=== PATIENT | male | born 1965 | race Caucasian/White ===

== ENCOUNTER 2018-06-29 00:08 | Outpatient (CLI) | payer BC ==
[2018-06-29 11:06] LABS: #Basophils 0.1 thou/uL (0.0-0.2); #Eosinphils 0.1 thou/uL (0.0-0.7); #Lymphocytes 1.4 thou/uL (1.20-3.40); #Monocytes 0.6 thou/uL (0.11-0.59); #Neutrophils 2.5 thou/uL (1.40-6.50); %Basophils 1.3 % (0.0-1.0); %Eosinophils 1.7 % (0.0-10.0); %Monocytes 12.2 % (0.0-10.0); %Neutrophils 54.8 % (42.0-75.0); Hemoglobin 15.2 g/dL (14.0-18.0); Mean Corpuscular HGB CONC 33.5 g/dL (32.0-36.0); Mean Corpuscular Hemoglobin 29.9 pg (27.0-31.0); Mean Corpuscular Volume 89.2 fL (78.0-98.0); Mean Platelet Volume 9.8 fL (7.4-10.4); Platelet Count 163 thou/uL (130-400); RBC Distribution Width 11.9 % (11.5-14.5); White Blood Cell (WBC) Count 4.6 thou/uL (4.8-10.8)
[2018-06-29 11:31] LABS: ALT (SGPT) 20 U/L (8-55); AST (SGOT) 17 U/L (5-34); Albumin 4.6 g/dL (3.5-5.0); Alkaline Phosphatase 70 U/L (40-150); Anion Gap 12 mmol/L (10-20); BUN (Urea Nitrogen) 11 mg/dL (8.9-20.6); Bilirubin, Total 0.8 mg/dL (0.2-1.2); Calc. Creatinine Clearance 0 mL/min (70-130); Calcium 9.3 mg/dL (7.8-10.44); Carbon Dioxide 25 mmol/L (22-29); Chloride 105 mmol/L (98-107); Estimated GFR-MDRD 86; Globulin 2.7 g/dL (2.4-3.5); Glucose 96 mg/dL (70-105); Protein, Total 7.3 g/dL (6.0-8.3); Sodium 138 mmol/L (136-145)
--- NOTE | 2018-06-30 22:54 | EKG ---
Test Reason : Blood Pressure : / mmHG Vent. Rate : 051 BPM Atrial Rate : 051 BPM P-R Int : 192 ms QRS Dur : 092 ms QT Int : 418 ms P-R-T Axes : 060 050 034 degrees QTc Int : 385 ms Sinus bradycardia Cannot rule out Anterior infarct , age undetermined /DOUBTFUL Abnormal ECG No previous ECGs available Confirmed by RENU CAMPBELL ([id number]) on 06/30/2018 10:54:44 PM Referred By: LETI Confirmed By:RENU CAMPBELL
== END 2018-06-29 00:09 | disposition home or self-care (01) ==
LOC: LABBT 00:08
PROVIDERS: ATTEND Surgery
DX: Z01.818 Encounter for other preprocedural examination (principal); K40.90 Unilateral inguinal hernia, without obstruction or gangrene, not specified as recurrent
CPT/HCPCS: 80053; 85025; 93005; 93010

== ENCOUNTER → 2018-07-01 | Day surgery (SDC) | payer BC ==
[2018-06-29 09:38] VITALS: BMI 27.6
[~2018-07-01] MED LIST: Bupivacaine/Epinephrine 0.25% 30 ML VIAL ONE; Dexamethasone 20 MG/5 ML VIAL ONE; Fentanyl 100 MCG/2 ML VIAL ONE; Glycopyrrolate 0.2 MG/ML 5 ML SYRINGE ONE; HYDROcodone/Acetaminophen 5/325 mg Tablet ONE; Ketorolac Tromethamine 30 MG/ML VIAL ONE; Lidocaine 1% PF 5 ML VIAL ONE; Lidocaine 2% Jelly 5 ML TUBE ONE; Midazolam HCl 2 mg/2 ml Vial ONE; Morphine 2 MG/ML SYRINGE ONE; Ondansetron PF 4 MG/2 ML Vial ONE; PROPOFOL 200 MG/20 ML VIAL ONE; Rocuronium Bromide 10 MG/ML (10ML VIAL) ONE
--- NOTE | 2018-07-01 11:52 | OP ---
DATE OF PROCEDURE: 07/01/2018 PREOPERATIVE DIAGNOSIS: Left inguinal hernia. PROCEDURE PERFORMED: Laparoscopic robotic-assisted left inguinal hernia repair with mesh. INDICATIONS: This is a 52-year-old male with a painful left groin bulge. FINDINGS: Left direct inguinal hernia. DESCRIPTION OF PROCEDURE: After informed consent was obtained, the patient was taken to the operating room and given general endotracheal anesthesia. He was placed in the supine position. His abdomen was prepped and draped in usual fashion. Local anesthesia was infiltrated subcutaneously and deep, and a supraumbilical incision was performed. Subcu was divided sharply. The fascia was grasped and incision was made in the fascia. Digital palpation revealed no local adhesions. A 12-mm trocar was inserted. Pneumoperitoneum was created to a pressure of 15 mmHg under direct vision utilizing a 30-degree laparoscope. Two 8 mm ports were placed just lateral to the rectus muscle at the level of the first incision. Then, the patient was placed in Trendelenburg position and the robot was docked. Now went to the console. The peritoneum was opened from median umbilical ligament laterally with electrocautery. Then, the subperitoneal pocket was created using blunt and sharp dissection. The hernia sac was completely dissected out. Hemostasis assured. A large contour mesh was inserted. It was sutured to the pubic tubercle with interrupted 2-0 silk suture tied intracorporeally, then to the anterior abdominal wall with a 2-0 silk suture tied intracorporeally just medial to the epigastric vessels. Again, hemostasis assured and the peritoneum was closed over the mesh with a running 3-0 V-Loc PDS. Hemostasis assured. [place] were removed. Trocars were removed. The fascia was closed with interrupted 0 Vicryl suture. The skin was closed with interrupted 4-0 Rapide. Dermabond was applied. The patient tolerated the procedure well, transferred to Recovery in good condition. Sponge and needle count verified, correct x2. Job ID: [id number]
== END ==
LOC: SDC 05:47
PROVIDERS: ATTEND Surgery
PROC: 0YU64JZ Supplement Left Inguinal Region with Synthetic Substitute, Percutaneous Endoscopic Approach (ICD-10-PCS; principal; 2018-07-01)
DX: K40.90 Unilateral inguinal hernia, without obstruction or gangrene, not specified as recurrent (principal); K21.9 Gastro-esophageal reflux disease without esophagitis; Z79.899 Other long term (current) drug therapy; Z79.52 Long term (current) use of systemic steroids
CPT/HCPCS: C1781; J0131; J0690; J1100; J1885; J2001; J2250; J2270; J2405; J2704; J3010

== ENCOUNTER 2018-07-03 07:05 | Observation (INO) | payer BC ==
[2018-07-03] MEDS ORDERED: Famotidine/PF 20 mg/2ml Vial ONE (07:15)
[2018-07-03] MEDS ORDERED: Nitroglycerin 0.4 MG TAB (25 Tab Bottle) ONE (07:15)
[2018-07-03] MEDS ORDERED: Aspirin Chewable 81 MG TAB ONE (07:16)
[2018-07-03] MEDS ORDERED: Milk Of Magnesia 30 ML UDCUP ONE (07:23)
[2018-07-03] MEDS ORDERED: Lidocaine Viscous Sol 2% 15 ml UD Cup ONE (07:23)
[2018-07-03 07:36] LABS: ALT (SGPT) 14 U/L (8-55); AST (SGOT) 13 U/L (5-34); Albumin 4.3 g/dL (3.5-5.0); Alkaline Phosphatase 66 U/L (40-150); Anion Gap 15 mmol/L (10-20); BUN (Urea Nitrogen) 16 mg/dL (8.9-20.6); Bilirubin, Total 0.5 mg/dL (0.2-1.2); Calc. Creatinine Clearance 0 mL/min (70-130); Calcium 9.5 mg/dL (7.8-10.44); Carbon Dioxide 21 mmol/L (22-29); Chloride 107 mmol/L (98-107); Estimated GFR-MDRD 90; Globulin 2.9 g/dL (2.4-3.5); Glucose 98 mg/dL (70-105); Potassium 4.4 mmol/L (3.5-5.1); Protein, Total 7.2 g/dL (6.0-8.3); Sodium 139 mmol/L (136-145)
[2018-07-03 07:45] LABS: Band 2 % (5-11); Eosinophils 2 % (0-10); Hemoglobin 14.5 g/dL (14.0-18.0); Lymphocytes 35 % (21-51); MDiff Complete? YES; Mean Corpuscular HGB CONC 33.3 g/dL (32.0-36.0); Mean Corpuscular Hemoglobin 28.9 pg (27.0-31.0); Mean Corpuscular Volume 86.9 fL (78.0-98.0); Mean Platelet Volume 10.1 fL (7.4-10.4); Monocytes 5 % (0-10); Neutrophil 53 % (42-75); Platelet Count 140 thou/uL (130-400); RBC Distribution Width 11.9 % (11.5-14.5); Reactive Lymphocytes 3 % (0-10); Red Blood Cell (RBC) Count 5.01 mill/uL (4.70-6.10); White Blood Cell (WBC) Count 6.5 thou/uL (4.8-10.8)
--- NOTE | 2018-07-03 08:07 | RAD ---
Chest one view HISTORY: Chest pain. Recent abdominal surgery. FINDINGS: Cardiac silhouette is magnified and upper limits of normal in size. Pulmonary vasculature a lso upper limits of normal. Mediastinum is midline. No lobar consolidation or evidence of pneumothorax. Small amount of gas lies under the right and left hemidiaphragms. shelter monitor leads overlie the c hest. IMPRESSION: Borderline cardiomegaly. No active cardiopulmonary abnormalities are apparent. Small amount of residual pneumoperitoneum from recent surgery.
[2018-07-03] MEDS ORDERED: Nitroglycerin 2% Ointment 1 INCH/1 GM Packet ONE (08:17)
[2018-07-03] MEDS ORDERED: Ondansetron PF 4 MG/2 ML Vial ONE (08:46)
--- NOTE | 2018-07-03 10:34 | CT ---
CT PULMONARY ANGIOGRAM WITH IV CONTRAST AND 3D MIP RECONSTRUCTIONS: DATE: 07/03/2018. PROVIDED CLINICAL HISTORY: Chest pain and elevated D-dimer and history of recent inguinal hernia repair. FINDINGS: The heart, pericardium, and great vessels demonstrate an unremarkable CT appearance. There is no pako dence for central or segmental pulmonary embolus. The lungs are free of significant opacity. The airway appears patent and of normal caliber. No pleu ral fluid or pneumothorax apparent. There is conspicuous pneumoperitoneum. This could be on the basis of the provided history of recent surgery. Small low-density foci are seen within the liver and likely reflect cysts but are too small to definitely characterize. The osseous structures demonstrate no concerning osteoblastic or osteol ytic lesions. IMPRESSION: 1. No evidence for central or segmental pulmonary embolus. 2. Pneumoperitoneum, moderate in degree. This could be on the basis of recent surgery. Consider apple rgical consultation if indicated. POS: [facility]
[2018-07-03] MEDS ORDERED: HYDROcodone/Acetaminophen 5/325 mg Tablet ONE (11:00)
[2018-07-03] MEDS ORDERED: Iopamidol 370 76% 100 ML VIAL ONE (11:16)
[2018-07-03 16:23] LABS: Troponin I Less than 0.010 ng/mL (< 0.028)
[2018-07-03 16:39] VITALS: BMI 31.1
[2018-07-03] MEDS ORDERED: Ondansetron PF 4 MG/2 ML Vial IVP PRN (17:19)
[2018-07-03] MEDS ORDERED: Acetaminophen 325 MG TAB PO PRN (17:19)
[2018-07-03] MEDS ORDERED: HYDROcodone/Acetaminophen 5/325 mg Tablet PO PRN ×2 (17:19)
[2018-07-03] MEDS ORDERED: Ondansetron ODT 4 MG TAB SL PRN (17:19)
[2018-07-03] MEDS ORDERED: Morphine 2 MG/ML SYRINGE SLOW IVP PRN (17:28)
[2018-07-03] MEDS ORDERED: Nitroglycerin 2% Ointment 1 INCH/1 GM Packet TOP SCH (18:00)
[2018-07-03] MEDS: Morphine 4 MG/ML VIAL SLOW IVP PRN (18:07)
[2018-07-03 19:34] LABS: Troponin I Less than 0.010 ng/mL (< 0.028)
--- NOTE | 2018-07-03 20:46 | CT ---
CT ABDOMEN AND PELVIS WITHOUT CONTRAST: 07/03/18 HISTORY: Abdominal pain, recent inguinal hernia surgery on 07/01/18. Chest pain. FINDINGS: Comparison made with CT stone protocol of 04/13/15 and CTA chest of 07/03/18. Absence of oral and IV contrast reduces the sensitivity of the exam for evaluation of solid organs an d bowel. There is mild atelectatic changes at the right lung base. There is free air in the abdomen which was also seen on the earlier CTA. This is likely due to recent surgery. Surgical consultation should be obtained. Low dense lesions in the liver consistent with cysts are again seen as on 04/13/15. There is vicarious excretion of contrast into the gallbladder. Contrast excretion is also seen in the ureters and urinar y bladder. There is free air in the urinary bladder likely from recent instrumentation. No hydrourete ronephrosis is noted on either side. There is a small amount of free fluid in the pelvis. Attenuation value of the fluid is about 30 Hounsfield units. Possibility of hemorrhage should be considered. A normal appearing appendix is seen. There are postop changes in the left inguinal region. Free air i s also seen in the pelvis. There are degenerative changes in the spine. IMPRESSION: 1. Free air in the abdomen and pelvis may be due to recent surgery. Clinical correlation and apple rgical consultation is recommended. 2. Small amount of free fluid in the pelvis. Possibility of hemorrhage cannot be excluded. 3. Free air in the urinary bladder may be due to recent instrumentation. POS: [facility]
--- NOTE | 2018-07-04 01:03 | HP ---
PRIMARY CARE PHYSICIAN: Dr. Lamar. CHIEF COMPLAINT: Abdominal pain/chest pain. HISTORY OF PRESENT ILLNESS: This is a 52-year-old male who reported to the emergency room today in [facility]. He had of kind of flank pain, radiated to his chest, right shoulder off and on since yesterday. He thought it was reflux and it occurred today at 6:30 this morning and worst he has ever had and in multiple places. Pertinent recent medical history includes a hernia repair two days ago laparoscopically for the left inguinal canal. The patient underwent a CTA of the chest while in the emergency room, which showed no evidence for central and segmental pulmonary emboli. Pneumoperitoneum moderate in degree, could be on the basis of recent surgery. Lab values: White blood cell count 6.5. D-dimer was 0.67. Chemistry unremarkable. Troponin x2 are undetectable. The patient was admitted for further management in the observation unit. On exam here, the patient primarily is reporting pain on either side of his outer abdomen, peritoneum; does report the pain feels like it moves around, does radiate some to his right shoulder. Denies any other past medical history. PAST MEDICAL HISTORY: Kidney stones x1 which they had to surgically remove; an inguinal hernia on the right many years ago, and then a inguinal hernia on the left two days ago. SURGICAL HISTORY: Kidney stone removal, hernia repair. PSYCHIATRIC HISTORY: None. SOCIAL HISTORY: Drinks socially. Denies any drug use. No smoking history. KNOWN ALLERGIES: None. CURRENT MEDICATIONS: Include: 1. Dexilant 30 mg once a day. 2. Flonase 2 sprays each naris daily. REVIEW OF SYSTEMS: The patient reports thoracic pain currently right now on the either side of his peritoneum; some lower sternum, does radiate to his right chest. He does report some shortness of breath. Pain takes away his breath, but when pain subsides, the patient denies any dyspnea. Reports diffuse abdominal pain and peritoneal pain on either side. Denies fever or chills, left-sided chest pain. All other systems are reviewed and negative unless mentioned in the HPI. PHYSICAL EXAMINATION: VITAL SIGNS: Blood pressure 120/69, pulse is 63, respirations are 16, pO2 sats are 95. GENERAL: Nontoxic appearing, currently appears in mild pain distress. HEENT: Atraumatic and normocephalic. ENT; mucous membranes are moist. Mouth exam is normal. NECK: Trachea is midline. No meningeal signs are noted. RESPIRATORY: Chest, breath sounds are clear. Chest expansion is equal. CARDIOVASCULAR: Regular heart rate and rhythm. Heart sounds are normal. ABDOMEN: Tender to the left lower quadrant and over the small incision sites in the lower abdomen, has hypoactive bowel sounds. The patient does indoors pilates. Does not report a bowel movement since surgery. BACK: No tenderness. Normal inspection. No CVA tenderness noted. EXTREMITIES: Upper extremity normal range of motion. Pulses equal bilaterally. Lower extremity, normal range of motion. Inspection is normal. Pedal pulses equal. No edema is noted. NEURO: Speech is normal. No focal neuro or motor deficits are noted. SKIN: Warm, dry, normal in color. There are 3 healing small incisions to the abdomen, dry and intact. PSYCH: Normal affect. IMAGING: EKG in the emergency room shows sinus keily with beats per minute 54. ST segments T-waves are normal. Subsequent EKG shows sinus keily, beats per minute 50, normal ST and T-wave. ASSESSMENT AND PLAN: 1. Chest pain. We will trend troponins. We will monitor overnight. Re-evaluate in the morning. The patient is currently still having chest type pain. May consider a stress test. Appears noncardiac atypical, but we will continue to trend and evaluate in the morning. 2. Abdominal pain. CT of the abdomen without contrast has been ordered to evaluate surgical site. We will recheck labs in the morning. Offer pain medication. 3. Deep venous thrombosis and gastrointestinal prophylaxis has been started. 4. Hospital course will be dependent on clinical findings. Job ID: [id number]
--- NOTE | 2018-07-04 02:19 | PDOC.EVN ---
Event Note - Event Note Event Note: Dr. Argueta contacted regarding ABD/Pel findings and he stated they were normal post-op findings.
[2018-07-04] MEDS: Morphine 4 MG/ML VIAL SLOW IVP PRN (06:02)
[2018-07-04] MEDS ORDERED: HYDROcodone/Acetaminophen 5/325 mg Tablet PO PRN ×2 (06:04)
[2018-07-04] MEDS ORDERED: Polyethylene Glycol 3350 17 GM Packet PO PRN (10:35)
[2018-07-04] MEDS ORDERED: Docusate 100 MG CAP PO PRN (10:36)
[2018-07-04 16:26] VITALS: BP 109/63; TEMP 99.2
--- NOTE | 2018-07-06 15:16 | DIS ---
DATE OF ADMISSION: 07/03/2018 DATE OF DISCHARGE: 07/04/2018 This is Arline Randall PA-C dictating a report for Bert Hansen MD. ALLERGIES: NO KNOWN DRUG ALLERGIES. CHIEF COMPLAINT: Abdominal pain and chest pain. FINAL DIAGNOSES: 1. Postoperative abdominal pain radiating to the chest wall, resolved, likely secondary to recent left inguinal repair surgery 3 days prior to his admission. 2. Status post left inguinal hernia repair, laparoscopic robotic-assisted, performed on 07/01/2018. CT scan showing free air in the abdomen and pelvis, reviewed by surgeon, who said this is normal postoperative finding. PROCEDURES PERFORMED: None. LABORATORY RESULTS: White blood cell count 6.5, RBC 5.0, hemoglobin hematocrit 43.6, MCV 86.9, platelets are 140. D-dimer 0.67. Sodium 139, potassium 4.4, chloride 107, carbon dioxide 21, BUN 16, creatinine 0.89, GFR 90. Troponin negative x2. AST, ALT, alkaline phosphatase all within normal limits. Lipase 32. IMAGING RESULTS: CT scan of the abdomen and pelvis without contrast performed on 07/03/2018, showed free air in the abdomen and pelvis, which may be due to recent surgery, clinical correlation and surgical consultation recommended, free air in the urinary bladder secondary to instrumentation. CTA of the chest performed on 07/02/2018, showed no evidence of central or segmental pulmonary embolism. Pneumoperitoneum, moderate secondary to recent surgery. CONSULTATION: Dr. Argueta, who reviewed his CT scans. HOSPITAL COURSE: The patient is a 52-year-old male with past medical history significant for recent laparoscopic left inguinal hernia repair with mesh performed on 07/01/2018, with Dr. Lizarraga, who presented to the hospital with complaints of abdominal pain and chest wall pain, which worsened the morning of his arrival. The patient states that he began experiencing some flank pain that seemed to be sharp and then radiate down to the suprapubic area and then up into his chest wall and shoulder. The pain seemed to be exacerbating with seated position. He did improve with walking. He had numerous imaging upon his arrival, which included CT scan of the abdomen and pelvis along with a CTA with findings outlined as above. General Surgery was consulted regarding these findings, who stated that this was normal postoperative finding. The patient was admitted for pain control. His pain was controlled with morphine and hydrocodone. His pain continued to improve throughout the day. As mentioned, his pain seemed to improve quite a bit more that he ambulated. By the end of the day, he was feeling much improved and was requesting to be discharged. The patient denies any exertional chest discomfort. He has enjoyed good health and exercises regularly. No typical symptoms of angina throughout his stay, all of his complaints seem to be musculoskeletal complaints relating to his recent procedure. The patient had no fevers or chills. He had no nausea or vomiting. PHYSICAL EXAMINATION: VITAL SIGNS: Blood pressure 115/63, pulse 63, O2 saturation is 95% on room air, respirations 16, temperature 98 degrees. GENERAL: The patient is a well-appearing male, resting comfortably, in no acute distress. HEENT: Atraumatic, normocephalic. Mucous membranes are moist. NECK: Supple. No lymphadenopathy. Trachea is midline. There are no carotid bruit. CV: S1 and S2. Regular rate and rhythm. No appreciable murmurs, rubs, or gallops. LUNGS: Regular respiratory rate and pattern. Clear to auscultation bilaterally. ABDOMEN: Soft. Positive bowel sounds. He does have 3 small laparoscopic incisions that are nonerythematous, well approximated, sealed with Dermabond. EXTREMITIES: No edema. SKIN: Warm and dry. No rashes. NEUROLOGIC: Cranial nerves 2 through 12 intact. The patient nonfocal. CONDITION AT DISCHARGE: Stable. DISCHARGE MEDICATIONS: 1. Vitamin D 3000 units daily. 2. Dexilant 50 mg tablet daily. 3. Fluticasone nasal spray with 2 sprays nasal p.r.n. 4. MiraLAX 17 g p.o. daily. 5. The patient will continue his previously prescribed hydrocodone if he needs. This was prescribed by his surgeon. DISCHARGE DISPOSITION: Home. PLAN: I have advised the patient to continue to monitor his symptoms, they are vastly improved, and likely related to his recent procedure. He will follow up with his surgeon and his primary care doctor within next week. He will return to the hospital with any worsening of symptoms. The care of this patient has been discussed with Dr. Hansen who agrees with the plan as above. Job ID: [id number]
== END 2018-07-04 17:59 | disposition home or self-care (01) ==
LOC: SCSER 07:05 → ERHOLD 10:53 → SCSEROBS 10:54 → 2SW 16:27
PROVIDERS: ADMIT Internal Medicine; ATTEND Internal Medicine
DX: G89.18 Other acute postprocedural pain (principal); R10.9 Unspecified abdominal pain; R07.89 Other chest pain; Z79.899 Other long term (current) drug therapy; Z98.890 Other specified postprocedural states
CPT/HCPCS: 36415; 71045; 71275; 74176; 80053; 83690; 84484; 85025; 85379; 93005; 96361; 96374; 96375; 96376; G0378; J2270; J2405; Q9967; S0028

== ENCOUNTER 2021-10-29 08:51 | Outpatient (CLI) | payer BC ==
[2021-10-29 09:56] LABS: #Basophils 0.1 10x3/uL (0.0-0.2); #Eosinphils 0.1 10x3/uL (0.0-0.5); #Monocytes 0.5 10x3/uL (0.0-1.1); %Basophils 1.8 % (0.0-2.0); %Eosinophils 1.6 % (0.0-6.0); %Lymphocytes 25.7 % (18.0-47.0); %Monocytes 10.7 % (0.0-10.0); %Neutrophils 59.8 % (40.0-75.0); Hemoglobin 14.5 g/dL (13.5-17.5); Mean Corpuscular HGB CONC 33.7 g/dL (32.0-36.0); Mean Corpuscular Hemoglobin 29.2 pg (27.0-33.0); Mean Corpuscular Volume 86.5 fl (81.2-95.1); Mean Platelet Volume 11.4 fl (7.4-10.4); Platelet Count 194 10x3/uL (150-450); RBC Distribution Width 13.2 % (11.5-14.5); Red Blood Cell (RBC) Count 4.97 10x6/uL (4.32-5.72); White Blood Cell (WBC) Count 5.1 10x3/uL (3.5-10.5)
[2021-10-29 10:26] LABS: Anion Gap 12 mmol/L (10-20); BUN (Urea Nitrogen) 18 mg/dL (8.4-25.7); Calc. Creatinine Clearance 0 mL/min (70-130); Calcium 9.2 mg/dL (7.8-10.44); Carbon Dioxide 25 mmol/L (22-29); Chloride 108 mmol/L (98-107); Estimated GFR 104; Glucose 104 mg/dL (70-105); Sodium 141 mmol/L (136-145)
== END 2021-10-29 08:52 | disposition home or self-care (01) ==
LOC: LABBT 08:51
PROVIDERS: ATTEND Orthopaedic Surgery
DX: Z01.818 Encounter for other preprocedural examination (principal); M75.111 Incomplete rotator cuff tear or rupture of right shoulder, not specified as traumatic
CPT/HCPCS: 71046; 80048; 85025; 93005; 93010

== ENCOUNTER 2024-01-30 10:36 | Outpatient (CLI) | payer BC | END 2024-01-30 10:37 | disposition home or self-care (01) | LOC: SCSMRI 10:36 | PROVIDERS: ATTEND Orthopaedic Surgery | DX: M50.121 Cervical disc disorder at C4-C5 level with radiculopathy (principal); M50.122 Cervical disc disorder at C5-C6 level with radiculopathy; M50.123 Cervical disc disorder at C6-C7 level with radiculopathy; G95.29 Other cord compression | CPT/HCPCS: 72141 ==